=== PATIENT | female | born 1970 | race Caucasian/White ===

== ENCOUNTER → 2018-08-12 | Outpatient (CLI) | payer OTHER ==
[~2018-08-12] VITALS: Ht 185.4 cm; Wt 90.7 kg
[~2018-08-12] MED LIST: DOXYCYCLINE 10100 MG PO
--- NOTE | ~2018-08-12 | P ---
[facility] [place] [address] PROCEDURE REPORT Name: ADELSO RIVAS Room #: REG [facility] Marium.#: [id number] Admission: 08/12/18 ������������������ Attend Phys: Milo Sena Discharge: ������������������ Date of : 66 Report #: [id number] THIS REPORT FOR: //name// CC: Milo Lewis DATE OF SERVICE: 08/12/2018 PROCEDURE PERFORMED: Colonoscopy with polypectomy. HISTORY OF PRESENT ILLNESS: The patient is a 48-year-old male who presents today for routine screening colonoscopy. No previous history of endoscopy. Denies any symptoms. No family history of colon cancer. DESCRIPTION OF PROCEDURE: The risks and benefits of the procedure were explained to the patient, those risks including but not limited to bleeding, perforation, and the risk of sedation. He understood these risks and gave informed consent. Sedation was given using propofol per anesthesia. Next, a digital rectal exam was initially performed, which was normal. Next, using a standard Olympus colonoscope, the scope was placed in the patient's anus and advanced under direct vision to the cecum. The overall prep was excellent. The cecum and ileocecal valve were normal in appearance. The ascending, transverse and descending colon were normal. In the distal sigmoid colon, a 6 mm sessile polyp was noted. This was removed by snare cautery, otherwise normal. The rectal mucosa was normal. On retroflexion, no abnormalities were noted. The scope was then withdrawn and the procedure terminated. The patient tolerated the procedure well. IMPRESSION: 1. Sigmoid colon polyp. 2. Otherwise, normal colonoscopy. RECOMMENDATIONS: 1. Await biopsy results. 2. If adenomatous polyp, repeat in 5 years; if hyperplastic, repeat in 10 years. Thank you for allowing me to participate in his care. ��������������������������������������������� ���������������������������������������� By: ��������������������������������������������� [id number] Milo Johnson MD /nt
--- NOTE | 2018-08-13 15:05 | PATH ---
[facility] [address] [address] PATHOLOGY RPT PROCEDURE Name: ADELSO DOVE Room #: REG CL Marium.#: [id number] ������������������ Admission: 08/12/18 ������������������ Date of : 66 Discharge: Report #: [id number] Path Case #: [id number] [facility] Accession Number: [id number] . 01 Material submitted: . colon - POLYP AT SIGMOID COLON. Modifiers: sigmoid . 01 Clinical history: . Pre-OP DX: Screening Post-OP DX: Colon polyp . 02 Diagnosis: Polyp, at sigmoid colon, endoscopic biopsy: - Tubular adenoma. - Negative for high-grade dysplasia. (IUV:rig operator; 08/13/2018) MBR/08/13/2018 . 02 Electronically signed: . Laura Saul MD, Pathologist NPI- [id number] . 01 Gross description: . Received in formalin labeled "Adelso Dove, polyp at sigmoid colon," is a 0.6 x 0.5 x 0.4 cm polypoid piece of fowler soft tissue. The margin is inked and the tissue is sectioned perpendicular to the margin and submitted in its entirely in cassette A1. (TSD; 08/12/2018) TOB/TOB . 02 Pathologist provided ICD-10: D12.5 . 02 CPT . 946970 Specimen Comment: A courtesy copy of this report has been sent to Specimen Comment: [phone], . Specimen Comment: Report sent to / DR FOX Performed at: [address] [facility], [place], [place] [id number] MD Rivas Craven MD Phone: [phone] Performed at: [address] [id number] MD Laura Saul MD Phone: [phone]
== END | disposition home or self-care (01) ==
LOC: GI 07:31
DX: Z12.11 Encounter for screening for malignant neoplasm of colon (principal); D12.5 Benign neoplasm of sigmoid colon; Z98.890 Other specified postprocedural states
CPT/HCPCS: 62110; 62900